=== PATIENT | male | born 1935 | race Caucasian/White ===

== ENCOUNTER → 2017-04-23 | Outpatient (REF) ==
[~2017-04-23] MED LIST: AMBIEN 10MG10 MG PO; AMBIEN 5MG TABLE5 MG PO; AVANDIA8 MG PO; BENADRYL 50M50 MG/ML PO; BENADRYL E2.5 MG/1 M PO; BUMEX 1MG TA1 MG/TA1 PO; CIPRO 500MG TA500 MG PO; CLARITIN 1010 MG/TAB PO; CLOBETASOL0.051 TP; COLACE20 MG/5 ML PO; DESYREL 50MG50 MG PO; DULCOLAX10 MG RC; FERROUS SU220 MG/5 M PO; FLEXERIL 1010 MG/TAB PO; FLONASE NASAL S16 GM NS; GLUCOPHAGE500 MG/TAB PO; HALDOL 5MG/ML5 MG/ML IJ; HEPARIN FLUS100 U/ML IV; INSHUMULINN SQ; INSHUMULINR SC; LISINOPRIL20 MG PO; LOPRESSOR I5 MG/5 ML IV; LOPRESSOR100 MG PO; LORATADINE10 MG PO; LORTAB ELIX0.5 MG/ML PO; LOVASTATIN40 MG PO; LUNESTA3 MG PO; MEVACOR 20M20 MG/TAB PO; MILK OF MA400 MG/5 M PO; MILK OF MAGNESI30 ML PO; NORCO 325 MG-51 TAB PO; NORMAL SALINE F10 ML IV; OCEAN NASAL SPR45 ML NS; OXYCONTIN10 MG PO; PLAVIX 75MG TAB75 MG PO; PRINIVIL20 MG PO; PRINIVIL5 MG PO; PROTONIX I40 MG/VIAL IV; PULMICORT0.5 MG/2 M IH; RT ALBUTER2.5 MG/0.5 IH; THERAPEUTIC MULT PO; TYLENOL ELIX32 MG/ML PO; XOPENEX 0.0.63 MG/3 IH; ZESTRIL 20MG TA20 MG PO; ZOFRAN INJ4 MG/2 ML IV; [UNRECOGNIZED DRUG - OTHER] TP
[2017-04-23 11:17] LABS: PSA-TOTAL 21.9 ng/mL (0-4); THYROID STIMULATING HORMONE 0.983 uIU/mL (0.465-4.680)
== END ==
LOC: ZLAB.WCH 10:29
PROVIDERS: Internal Medicine
DX: Z01.89 Encounter for other specified special examinations (principal)
CPT/HCPCS: G0103

== ENCOUNTER → 2018-01-15 | Outpatient (REF) | LOC: ZLAB.WCH 15:51 | DX: Z01.89 Encounter for other specified special examinations (principal) ==

== ENCOUNTER → 2018-08-19 | Outpatient (REF) | LOC: ZLAB.WCH 16:52 | DX: Z01.89 Encounter for other specified special examinations (principal) | CPT/HCPCS: G0103 ==

== ENCOUNTER → 2018-10-10 | Outpatient (CLI) | payer MEDICARE, OTHER | LOC: COL.RAD 09:22 | DX: C61 Malignant neoplasm of prostate (principal) | CPT/HCPCS: A9503 ==

== ENCOUNTER → 2018-10-21 | Outpatient (REF) | LOC: ZLAB.WCH 08:56 | DX: Z01.89 Encounter for other specified special examinations (principal) ==

== ENCOUNTER → 2018-10-31 | Outpatient (REF) | LOC: ZLAB.WCH 19:50 | DX: Z01.89 Encounter for other specified special examinations (principal) ==

== ENCOUNTER → 2018-11-18 | Outpatient (REF) | LOC: ZLAB.WCH 08:55 | DX: Z01.89 Encounter for other specified special examinations (principal) ==

== ENCOUNTER → 2019-01-05 | Outpatient (REF) | LOC: ZLAB.WCH 16:07 | DX: Z01.89 Encounter for other specified special examinations (principal) | CPT/HCPCS: G0103 ==